=== PATIENT | male | born 1970 | race Caucasian/White ===

== ENCOUNTER 2017-03-01 16:59 | Emergency (ER) | payer MEDICAID ==
[~2017-03-01] VITALS: Ht 190.5 cm; Wt 79.4 kg
[~2017-03-01 16:59] MED LIST: ASPIR 8181 MG ORAL; ATIVAN0.5 MG ORAL; ATORVASTATIN CA20 MG ORAL; CYMBALTA30 MG ORAL; ENOXAPARIN100 MG/1 M SUBQ; FOLIC ACID1 MG ORAL; GABAPENTIN300 MG ORAL; KEPPRA500 MG ORAL; MELOXICAM15 MG PO; MULTIVITAMINS1 EA13 ORAL; NORCO 5-325 TA1 EACH ORAL; PANTOPRAZOLE SO40 MG ORAL; TASIGNA150 MG PO; THIAMINE HCL100 MG ORAL; TOPIRAMATE25 MG ORAL
[2017-03-01 17:30] VITALS: BP 118/66
[2017-03-01] MEDS ORDERED: LORazepam Inj 2mg/ml 1ml IV ONE (17:30)
[2017-03-01] MEDS ORDERED: levETIRAcetam 500 MG in D5W 110 ML IV ONE (17:30)
[2017-03-01] MEDS ORDERED: levETIRAcetam 500mg vial IV ONE (17:38)
[2017-03-01 18:18] LABS: BASOPHILS % (AUTO) 0.8 % (0.0-2.0); EOSINOPHILS % (AUTO) 4.3 % (0.0-3.0); LYMPHOCYTES % (AUTO) 27.9 % (20.0-45.0); MEAN CORPUSCULAR HEMOGLOBIN 32.9 PG (27.0-31.0); MEAN CORPUSCULAR HGB CONC 33.5 G/DL (32.0-36.0); MEAN CORPUSCULAR VOLUME 98 FL (80-99); MEAN PLATELET VOLUME 6.9 FL (6.5-10.1); MONOCYTES % (AUTO) 11.9 % (1.0-10.0); PLATELET COUNT 108 K/UL (150-450); RED BLOOD COUNT 3.96 M/UL (4.70-6.10); RED CELL DISTRIBUTION WIDTH 16.7 % (11.6-14.8); WHITE BLOOD COUNT 6.9 K/UL (4.8-10.8)
[2017-03-01 18:21] LABS: ACETAMINOPHEN < 10 ug/mL (10-30); ALANINE AMINOTRANSFERASE 39 U/L (3-41); ALBUMIN/GLOBULIN RATIO 0.9 (1.0-2.7); ALCOHOL 315 mg/dL; ANION GAP 18 (5-15); ASPARTATE AMINO TRANSFERASE 83 U/L (5-40); CALCIUM 8.8 mg/dL (8.6-10.2); CARBON DIOXIDE 25 mEQ/L (20-30); CHLORIDE 99 mEQ/L (98-107); CREATININE 0.7 mg/dL (0.7-1.2); GLOMERULAR FILTRATION RATE > 60 mL/min (>60); HEMOLYSIS 4; POTASSIUM 3.6 mEQ/L (3.4-4.9); SODIUM 142 mEQ/L (135-145)
[2017-03-01] MEDS ORDERED: Topiramate 100mg tab ORAL ONE (19:00)
[2017-03-01 19:18] VITALS: BP 117/70
[2017-03-01 20:18] VITALS: BP 109/68
--- NOTE | 2017-03-01 21:33 | Emergency Room Report ---
History of Present Illness General Chief Complaint: Seizure Source: Patient, EMS (SHILPA MARTINEZ M.D.) Present Illness HPI 46-year-old male presents ED status post seizure. Per EMS patient had a seizure on the street. Patient fell out of his wheelchair and hit his head. Upon arrival patient is awake alert oriented x3. Patient notes history of seizures. States he was recently discharged from a hospital but was unable to fill his prescriptions. Patient takes Keppra, Topamax and Ativan. patient states he hit his head. Patient denies any drug use. Denies any chest pain or shortness of breath. Denies any headaches. No other aggravating relieving factors. Denies any other associated symptoms (SHILPA MARTINEZ M.D.) Allergies: Coded Allergies: No Known Allergies (Unverified , 08/23/15) Patient History Past Medical History: CVA/TIA, seizures Pertinent Family History: none Social History: Denies: alcohol use, drug use, smoking Immunizations: UTD Reviewed Nursing Documentation: PMH: Agreed, PSxH: Agreed (SHILPA MARTINEZ M.D.) Nursing Documentation-PMH Past Medical History: No History, Except For Hx Neurological Problems: Yes Hx Cerebrovascular Accident: Yes Hx Seizures: Yes (SHILPA MARTINEZ M.D.) Review of Systems All Other Systems: negative except mentioned in HPI (SHILPA MARTINEZ M.D.) Physical Exam Vital Signs Date Time Temp Pulse Resp B/P Pulse Ox O2 Delivery O2 Flow Rate FiO2 03/01/17 16:55 97.9 100 20 123/80 98 Room Air Sp02 EP Interpretation: reviewed, normal General Appearance: no apparent distress, alert, GCS 15, non-toxic Head: normocephalic, other - abrasion to forehead Eyes: bilateral eye PERRL, bilateral eye normal inspection ENT: hearing grossly normal, normal pharynx, no angioedema, normal voice Neck: full range of motion, supple/symm/no masses Respiratory: chest non-tender, lungs clear, normal breath sounds, speaking full sentences Cardiovascular #1: regular rate, rhythm, no edema Cardiovascular #2: 2+ carotid (R), 2+ carotid (L), 2+ radial (R), 2+ radial (L) , 2+ dorsalis pedis (R), 2+ dorsalis pedis (L) Gastrointestinal: normal bowel sounds, non tender, soft, non-distended, no guarding, no rebound Rectal: deferred Genitourinary: normal inspection, no CVA tenderness Musculoskeletal: back normal, gait/station normal, normal range of motion, non- tender, calf tenderness Neurologic: alert, oriented x3, responsive, motor strength/tone normal, sensory intact, speech normal Psychiatric: judgement/insight normal, memory normal, mood/affect normal, no suicidal/homicidal ideation Reflexes: 3+ bicep (R), 3+ bicep (L), 3+ tricep (R), 3+ tricep (L), 3+ knee (R) , 3+ knee (L) Skin: normal color, no rash, warm/dry, well hydrated Lymphatic: no adenopathy (SHILPA MARTINEZ M.D.) Medical Decision Making Diagnostic Impression: Primary Impression: Seizure Additional Impression: Alcohol intoxication Qualified Codes: F10.129 - Alcohol abuse with intoxication, unspecified Labs Test 03/01/17 17:19 03/01/17 17:35 Urine Opiates Screen Negative (NEGATIVE) Urine Barbiturates Screen Negative (NEGATIVE) Phencyclidine (PCP) Screen Negative (NEGATIVE) Urine Amphetamines Screen Negative (NEGATIVE) Urine Benzodiazepines Screen Negative (NEGATIVE) Urine Cocaine Screen Negative (NEGATIVE) Urine Marijuana (THC) Screen Negative (NEGATIVE) White Blood Count 6.9 K/UL (4.8-10.8) Red Blood Count 3.96 M/UL (4.70-6.10) Hemoglobin 13.0 G/DL (14.2-18.0) Hematocrit 38.9 % (42.0-52.0) Mean Corpuscular Volume 98 FL (80-99) Mean Corpuscular Hemoglobin 32.9 PG (27.0-31.0) Mean Corpuscular Hemoglobin Concent 33.5 G/DL (32.0-36.0) Red Cell Distribution Width 16.7 % (11.6-14.8) Platelet Count 108 K/UL (150-450) Mean Platelet Volume 6.9 FL (6.5-10.1) Neutrophils (%) (Auto) 55.0 % (45.0-75.0) Lymphocytes (%) (Auto) 27.9 % (20.0-45.0) Monocytes (%) (Auto) 11.9 % (1.0-10.0) Eosinophils (%) (Auto) 4.3 % (0.0-3.0) Basophils (%) (Auto) 0.8 % (0.0-2.0) Sodium Level 142 mEQ/L (135-145) Potassium Level 3.6 mEQ/L (3.4-4.9) Chloride Level 99 mEQ/L (98-107) Carbon Dioxide Level 25 mEQ/L (20-30) Anion Gap 18 (5-15) Blood Urea Nitrogen 12 mg/dL (7-23) Creatinine 0.7 mg/dL (0.7-1.2) Estimat Glomerular Filtration Rate > 60 mL/min (>60) Glucose Level 103 mg/dL (74-106) Calcium Level 8.8 mg/dL (8.6-10.2) Total Bilirubin 0.7 mg/dL (0.0-1.2) Aspartate Amino Transf (AST/SGOT) 83 U/L (5-40) Alanine Aminotransferase (ALT/SGPT) 39 U/L (3-41) Alkaline Phosphatase 116 U/L (40-129) Total Protein 8.0 g/dL (6.6-8.7) Albumin 3.8 g/dL (3.5-5.2) Globulin 4.2 g/dL Albumin/Globulin Ratio 0.9 (1.0-2.7) Salicylates Level < 1 mg/dL (10-30) Acetaminophen Level < 10 ug/mL (10-30) Serum Alcohol 315 mg/dL (SHILPA MARTINEZ M.D.) ER Course The patient was endorsed to me by Dr. Martinez. The patient was noted to have improvement in his mental status. Patient was awake alert oriented. The patient was given oral Ativan as he had prior history of chronic alcohol abuse as well as seizures. The patient declined placement. He had a good plan for self care. Labs Test 03/01/17 17:19 03/01/17 17:35 Urine Opiates Screen Negative (NEGATIVE) Urine Barbiturates Screen Negative (NEGATIVE) Phencyclidine (PCP) Screen Negative (NEGATIVE) Urine Amphetamines Screen Negative (NEGATIVE) Urine Benzodiazepines Screen Negative (NEGATIVE) Urine Cocaine Screen Negative (NEGATIVE) Urine Marijuana (THC) Screen Negative (NEGATIVE) White Blood Count 6.9 K/UL (4.8-10.8) Red Blood Count 3.96 M/UL (4.70-6.10) Hemoglobin 13.0 G/DL (14.2-18.0) Hematocrit 38.9 % (42.0-52.0) Mean Corpuscular Volume 98 FL (80-99) Mean Corpuscular Hemoglobin 32.9 PG (27.0-31.0) Mean Corpuscular Hemoglobin Concent 33.5 G/DL (32.0-36.0) Red Cell Distribution Width 16.7 % (11.6-14.8) Platelet Count 108 K/UL (150-450) Mean Platelet Volume 6.9 FL (6.5-10.1) Neutrophils (%) (Auto) 55.0 % (45.0-75.0) Lymphocytes (%) (Auto) 27.9 % (20.0-45.0) Monocytes (%) (Auto) 11.9 % (1.0-10.0) Eosinophils (%) (Auto) 4.3 % (0.0-3.0) Basophils (%) (Auto) 0.8 % (0.0-2.0) Sodium Level 142 mEQ/L (135-145) Potassium Level 3.6 mEQ/L (3.4-4.9) Chloride Level 99 mEQ/L (98-107) Carbon Dioxide Level 25 mEQ/L (20-30) Anion Gap 18 (5-15) Blood Urea Nitrogen 12 mg/dL (7-23) Creatinine 0.7 mg/dL (0.7-1.2) Estimat Glomerular Filtration Rate > 60 mL/min (>60) Glucose Level 103 mg/dL (74-106) Calcium Level 8.8 mg/dL (8.6-10.2) Total Bilirubin 0.7 mg/dL (0.0-1.2) Aspartate Amino Transf (AST/SGOT) 83 U/L (5-40) Alanine Aminotransferase (ALT/SGPT) 39 U/L (3-41) Alkaline Phosphatase 116 U/L (40-129) Total Protein 8.0 g/dL (6.6-8.7) Albumin 3.8 g/dL (3.5-5.2) Globulin 4.2 g/dL Albumin/Globulin Ratio 0.9 (1.0-2.7) Salicylates Level < 1 mg/dL (10-30) Acetaminophen Level < 10 ug/mL (10-30) Serum Alcohol 315 mg/dL (Larry Stuart) CT/MRI/US Diagnostic Results CT/MRI/US Diagnostic Results : Imaging Test Ordered: CT head Impression no acute process (SHILPA MARTINEZ M.D.) Last Vital Signs Date Time Temp Pulse Resp B/P Pulse Ox O2 Delivery O2 Flow Rate FiO2 03/01/17 19:18 97.0 81 18 117/70 98 Room Air Status: improved (SHILPA MARTINEZ M.D.) Status: improved (Larry Stuart) Disposition: HOME, SELF-CARE Condition: Stable Scripts Lorazepam* (ATIVAN*) 0.5 Mg Tablet 0.5 MG ORAL THREE TIMES A DAY, #30 TAB Prov: Larry Stuart 03/02/17 Topiramate* (TOPAMAX*) 25 Mg Tablet 3 TAB ORAL BID, #180 TAB Prov: Larry Stuart 03/02/17 Levetiracetam (KEPPRA) 1,000 Mg Tablet 1000 MG ORAL BID, #60 TAB 0 Refills Prov: Larry Stuart 03/02/17 Referrals: [facility]ERR[facility] (PCP) SHILPA MARTINEZ M.D. March 01, 2017 21:33 Larry Sturat March 02, 2017 07:33
[2017-03-01] MEDS ORDERED: ATIVAN0.5 MG ORAL (22:02)
[2017-03-01] MEDS ORDERED: KEPPRA1000 MG ORAL (22:02)
[2017-03-01] MEDS ORDERED: TOPAMAX25 MG ORAL (22:02)
[2017-03-01 22:18] VITALS: BP 107/66
[2017-03-02 00:18] VITALS: BP 127/68
[2017-03-02 02:18] VITALS: BP 115/59
[2017-03-02 04:18] VITALS: BP 109/62
[2017-03-02] MEDS ORDERED: TOPAMAX25 MG ORAL (04:55)
[2017-03-02] MEDS ORDERED: ATIVAN0.5 MG ORAL (04:55)
[2017-03-02] MEDS ORDERED: KEPPRA1000 MG ORAL (04:55)
[2017-03-02] MEDS ORDERED: LORazepam 1mg tab ORAL ONE (05:00)
[2017-03-02 06:15] VITALS: BP 105/68
--- NOTE | 2017-03-02 10:23 | Diagnostic Imaging Report ---
Indications: Seizure Technique: Continuous helical CT imaging of the brain was performed with automatic exposure control on a Siemens sensation [address] scanner. Axial and coronal images were reconstructed at 5 mm slice thickness and interval. CTDI volume(s): 70 mGy Total DLP: 1604 mGy-cm Findings: Comparison: 03/29/16 Diffuse atrophy, left frontal chronic encephalomalacia unchanged. No evidence of mass or hemorrhage, other attenuation abnormality, mass effect, midline shift, hydrocephalus or increased intracranial pressure. Bone window images are unremarkable. Right mastoid air cells currently partially opacified. Visualized paranasal sinuses and left mastoid air cells are clear. IMPRESSION: No evidence of acute intracranial pathology, unchanged Stable chronic intracranial changes as described Suggestion of development of mild right mastoiditis. This correlates with Dr. Guerra's preliminary report. The CT scanner at [facility] is accredited by the [employer] and the scans are performed using protocols designed to limit radiation exposure to as low as reasonably achievable to attain images of sufficient resolution adequate for diagnostic evaluation.
== END 2017-03-02 06:15 | disposition home or self-care (01) ==
LOC: EDBD 16:59 → EMR 17:30
DX: G40.909 Epilepsy, unspecified, not intractable, without status epilepticus (principal); F10.129 Alcohol abuse with intoxication, unspecified; Y90.8 Blood alcohol level of 240 mg/100 ml or more; Z86.73 Personal history of transient ischemic attack (TIA), and cerebral infarction without residual deficits
CPT/HCPCS: 36415; 70450; 80053; 80300; 80329; 82962; 85025; 96360; 96361; 96374; 96375; 99284; J1953

== ENCOUNTER 2017-03-02 12:29 | Emergency (ER) | payer MEDICAID ==
[~2017-03-02] VITALS: Ht 182.9 cm; Wt 81.6 kg
[~2017-03-02 12:29] MED LIST changes: +KEPPRA1000 MG ORAL; +TOPAMAX25 MG ORAL
--- NOTE | 2017-03-02 13:33 | Emergency Room Report ---
History of Present Illness General Chief Complaint: Laceration Source: EMS Present Illness HPI 46 YO Male . presents to the ED intoxicated with alcohol, pt. is NAD, pt. is alert, has obvious sign of trauma with contusion and abrasion to the left side of the forehead, pt. states he fell out of this wheelchair. pt. is poorly cooperative and refuses evaluation initially. HPI and ROS are limited due to pt. cooperation. Allergies: Coded Allergies: No Known Allergies (Unverified , 08/23/15) Patient History Past Medical History: see triage record Past Surgical History: none Pertinent Family History: none Immunizations: UTD Reviewed Nursing Documentation: PMH: Agreed, PSxH: Agreed Nursing Documentation-PMH Past Medical History: No History, Except For Hx Neurological Problems: Yes Hx Cerebrovascular Accident: Yes Hx Seizures: Yes Review of Systems All Other Systems: limited - poor pt. cooperation, and refusal of care/ evaluation Physical Exam Sp02 EP Interpretation: reviewed, normal General Appearance: no apparent distress, alert, GCS 15, non-toxic, thin, other - disheveled Head: normocephalic, other - contusion to the left side of the forehead, abrasion/ superficial lac approximately 0.3cm in length noted. Eyes: bilateral eye PERRL, bilateral eye normal inspection ENT: hearing grossly normal, normal pharynx, no angioedema, normal voice Neck: full range of motion, supple/symm/no masses Respiratory: lungs clear, normal breath sounds, speaking full sentences - pt. is verbally agressive and uses profanity regularly Cardiovascular #1: regular rate, rhythm, no edema Musculoskeletal: back normal, normal range of motion, non-tender, other - wheelchair Neurologic: alert, oriented x3, responsive, motor strength/tone normal, sensory intact, speech normal Psychiatric: judgement/insight normal, memory normal, mood/affect normal Skin: normal color, no rash, warm/dry, well hydrated Procedures Laceration/Wound Repair Laceration/Wound Repair : Consent: Verbal Wound Location: face - left forehead/eyebrow Wound's Depth, Shape: superficial Wound Length (cm): 0 Wound Explored: clean Irrigated w/ Saline (ccs): 60 Betadine Prep?: Yes Wound Repaired With: Dermabond Layer Closure?: No Sterile Dressing Applied?: Yes Splint Applied?: No Sling Applied?: No Patient Tolerated: Well Complications: None Medical Decision Making PA Attestation Dr. Gardner is my supervising Physician whom patient management has been discussed with. Diagnostic Impression: Primary Impression: Contusion Qualified Codes: S00.03XA - Contusion of scalp, initial encounter Additional Impression: Alcohol intoxication Qualified Codes: F10.120 - Alcohol abuse with intoxication, uncomplicated ER Course Pt. presents to the ED intoxicated with alcohol, pt. is NAD, pt. is alert, has obvious sign of trauma with contusion and abrasion to the left side of the forehead, pt. states he fell out of this wheelchair. pt. is poorly cooperative and refuses evaluation initially. Ddx considered but are not limited to ETOH, Trauma, Syncope, dementia, OD Vital signs: are WNL, pt. is afebrile H&PE are most consistent with ETOH intoxication, and contusion will do imaging to r/o bleed. ORDERS: - CT head no contrast: soft tissue contusion, otherwise no acute injury, chronic osteomalacia noted per official radiology report. ED INTERVENTIONS: --Tetanus vaccination is administered. - wound care/cleaning -derma gary is applied to superficial forehead lac/abrasion. -Observance while he detoxifies. Pt. was allowed to sleep/rest until clinically sober. DISCHARGE: At this time pt. is stable for d/c to home. Will provide printed patient care instructions, and any necessary prescriptions. Care plan and follow up instructions have been discussed with the patient prior to discharge. Disposition: HOME, SELF-CARE Condition: Stable Referrals: [facility]ERR[facility] (PCP) Patient Instructions: Nonsutured Laceration Care Additional Instructions: Take medications as directed. Follow up with PCP in 3-5 days Return sooner to ED if new symptoms occur, or current symptoms become worse. Recommend discontinue use of alcohol - Please note that this Emergency Department Report was dictated using [email or web address] technology software, occasionally this can lead to erroneous entry secondary to interpretation by the dictation equipment. Reyna Leal March 02, 2017 13:32
[2017-03-02] MEDS ORDERED: TdaP Vaccine 0.5ml Syr IM ONE (13:45)
[2017-03-02] MEDS ORDERED: Bacitracin Oint UD TOPIC ONE (13:45)
--- NOTE | 2017-03-02 14:40 | Diagnostic Imaging Report ---
Indications: Fall, head trauma with laceration, pain Technique: Continuous helical CT imaging of the brain was performed with automatic exposure control on a Siemens sensation [address] scanner. Axial and coronal images were reconstructed at 5 mm slice thickness and interval. CTDI volume(s): 70 mGy Total DLP: 1569 mGy-cm Findings: Comparison: 03/29/16 Chronic encephalomalacia high left frontal lobe, mild diffuse atrophy unchanged.. No evidence of mass or hemorrhage, other attenuation abnormality, mass effect, midline shift, hydrocephalus or increased intracranial pressure. Bone window images are unremarkable. Visualized paranasal sinuses and mastoid air cells are clear. Anterior left frontal scalp currently mildly swollen and increased attenuation with irregular skin thickening. No associated gas or foreign body. IMPRESSION: Left frontal scalp contusion No other evidence of acute injury or other acute intracranial pathology. Stable chronic changes as described The CT scanner at [facility] is accredited by the [employer] and the scans are performed using protocols designed to limit radiation exposure to as low as reasonably achievable to attain images of sufficient resolution adequate for diagnostic evaluation.
[2017-03-02 17:37] VITALS: BP 128/68
== END 2017-03-02 17:42 | disposition home or self-care (01) ==
LOC: EDBD 12:29 → EMR 12:31
DX: S01.112A Laceration without foreign body of left eyelid and periocular area, initial encounter (principal); S00.03XA Contusion of scalp, initial encounter; F10.129 Alcohol abuse with intoxication, unspecified; W05.0XXA Fall from non-moving wheelchair, initial encounter; Y92.480 Sidewalk as the place of occurrence of the external cause; Y99.8 Other external cause status; Z23 Encounter for immunization
CPT/HCPCS: 12011; 70450; 90471; 90715; 96372; 99284; Z7502

== ENCOUNTER 2017-03-03 15:06 | Emergency (ER) | payer MEDICAID ==
[~2017-03-03] VITALS: Ht 182.9 cm; Wt 81.6 kg
[2017-03-03 17:10] VITALS: BP 128/82
[2017-03-03 20:20] VITALS: BP 128/82
--- NOTE | 2017-03-03 21:01 | Emergency Room Report ---
History of Present Illness General Chief Complaint: Alcohol Intoxication Source: Patient Present Illness HPI The patient is a 46-year-old male brought in by ambulance for possible alcohol intoxication. The patient was seen in this emergency department for the same complaint yesterday. He is unable to provide any information at this time. Allergies: Coded Allergies: No Known Allergies (Unverified , 08/23/15) Patient History Past Medical History: see triage record Pertinent Family History: none Social History: Reports: alcohol use, drug use Reviewed Nursing Documentation: PMH: Agreed, PSxH: Agreed Nursing Documentation-PMH Past Medical History: No History, Except For History Of Psychiatric Problem: Yes - alcohol abuse Hx Neurological Problems: Yes Hx Cerebrovascular Accident: Yes Hx Seizures: Yes Review of Systems All Other Systems: negative except mentioned in HPI Physical Exam Vital Signs Date Time Temp Pulse Resp B/P Pulse Ox O2 Delivery O2 Flow Rate FiO2 03/03/17 15:06 98.1 90 16 128/82 100 Room Air Sp02 EP Interpretation: reviewed, normal General Appearance: alert, GCS 15, non-toxic, lethargic Head: normocephalic Eyes: bilateral eye PERRL, bilateral eye normal inspection ENT: hearing grossly normal, normal pharynx, no angioedema, normal voice Neck: full range of motion, supple/symm/no masses Respiratory: chest non-tender, lungs clear, normal breath sounds, speaking full sentences Cardiovascular #1: regular rate, rhythm, no edema Gastrointestinal: normal bowel sounds, non tender, soft, non-distended, no guarding, no rebound Musculoskeletal: other - R sided paralysis Neurologic: sensory intact, motor weakness - R sided Psychiatric: no suicidal/homicidal ideation Skin: normal color, no rash, warm/dry, well hydrated Lymphatic: no adenopathy Medical Decision Making PA Attestation Dr. Viramontes is my supervising physician. Patient management was discussed with my supervising physician Diagnostic Impression: Primary Impression: ETOH abuse ER Course The patient is a 46-year-old male brought in by ambulance for possible alcohol intoxication. DDx considered but not limited to: acute alcohol intoxication, hepatic encephalopathy, drug overdose, hypoglycemia, psychosis Physical exam: Vitals are within normal limits. No apparent distress. Patient is lethargic. Head is normocephalic atraumatic. Pupils are equally round and reactive to light The patient is arousable by touch or name. Lungs are clear to auscultation bilaterally. Abdomen is soft, non tender. R sided paralysis. Otherwise exam is unremarkable Blood alcohol at 399. The patient is given time to rest in the emergency department. The patient is able to ambulate well and is asking to leave at this time. The patient is alert and oriented. R sided paralysis is chronic. Pt travels with wheelchair. The patient be discharged home and given ER precautions. Patient was given advice on alcohol addiction Laboratory Tests Test 03/03/17 16:10 Urine Opiates Screen Negative (NEGATIVE) Urine Barbiturates Screen Negative (NEGATIVE) Phencyclidine (PCP) Screen Negative (NEGATIVE) Urine Amphetamines Screen Negative (NEGATIVE) Urine Benzodiazepines Screen Negative (NEGATIVE) Urine Cocaine Screen Negative (NEGATIVE) Urine Marijuana (THC) Screen Negative (NEGATIVE) Serum Alcohol 399 mg/dL Lab Results Impression Alcohol significantly elevated. Last Vital Signs Date Time Temp Pulse Resp B/P Pulse Ox O2 Delivery O2 Flow Rate FiO2 03/03/17 20:20 98.1 90 16 128/82 100 Room Air Status: improved Disposition: HOME, SELF-CARE Condition: Improved Referrals: [facility]ERR[facility] (PCP) Patient Instructions: Alcohol Intoxication, Alcohol Abuse and Nutrition Additional Instructions: My findings were discussed with the patient. Patient was counseled to seek help for alcohol abuse. Patient is stable for discharge, is alert and oriented, and can ambulate without difficulty. Patient is asked to return to ED if he experiences chest pain, abdominal pain, dizziness, falls down, or for any reason. WILMAR RODRIGUEZ March 03, 2017 21:01
== END 2017-03-03 20:38 | disposition home or self-care (01) ==
LOC: EDBD 15:06 → EMR 15:21
DX: F10.10 Alcohol abuse, uncomplicated (principal); Y90.8 Blood alcohol level of 240 mg/100 ml or more; Z86.73 Personal history of transient ischemic attack (TIA), and cerebral infarction without residual deficits
CPT/HCPCS: 36415; 80300; 80329; 96374

== ENCOUNTER 2017-07-04 17:49 | Emergency (ER) | payer MEDICAID ==
[~2017-07-04] VITALS: Ht 180.3 cm; Wt 81.6 kg
[2017-07-04 17:49] VITALS: BP 130/86
[2017-07-04] MEDS ORDERED: LOVENOX10 M3 SUBQ (17:52)
[2017-07-04] MEDS ORDERED: NEURONTIN100 MG ORAL (17:52)
[2017-07-04] MEDS ORDERED: TASIGNA150 MG PO (17:52)
[2017-07-04] MEDS ORDERED: FOLIC ACID1 MG ORAL (17:52)
[2017-07-04] MEDS ORDERED: NORCO 10-325 T1 EACH ORAL (17:52)
[2017-07-04] MEDS ORDERED: KEPPRA500 M4 ORAL (17:52)
[2017-07-04] MEDS ORDERED: ATIVAN0.5 MG ORAL (17:52)
[2017-07-04 19:02] LABS: MEAN CORPUSCULAR HEMOGLOBIN 33.7 PG (27.0-31.0); MEAN CORPUSCULAR HGB CONC 33.6 G/DL (32.0-36.0); MEAN CORPUSCULAR VOLUME 100 FL (80-99); MEAN PLATELET VOLUME 5.6 FL (6.5-10.1); PLATELET COUNT 88 K/UL (150-450); RED BLOOD COUNT 3.63 M/UL (4.70-6.10); RED CELL DISTRIBUTION WIDTH 15.4 % (11.6-14.8); WHITE BLOOD COUNT 6.4 K/UL (4.8-10.8)
[2017-07-04 19:15] VITALS: BP 119/69
[2017-07-04 19:25] LABS: ALANINE AMINOTRANSFERASE 93 U/L (3-41); ALBUMIN/GLOBULIN RATIO 0.9 (1.0-2.7); ALCOHOL 369 mg/dL; ANION GAP 16 (5-15); ASPARTATE AMINO TRANSFERASE 144 U/L (5-40); CALCIUM 8.8 mg/dL (8.6-10.2); CARBON DIOXIDE 28 mEQ/L (20-30); CHLORIDE 87 mEQ/L (98-107); CREATININE 0.7 mg/dL (0.7-1.2); GLOMERULAR FILTRATION RATE > 60 mL/min (>60); HEMOLYSIS 27; POTASSIUM 3.7 mEQ/L (3.4-4.9); SODIUM 131 mEQ/L (135-145); TOTAL PROTEIN 7.8 g/dL (6.6-8.7)
[2017-07-04 19:31] LABS: APPEARANCE,URINE CLEAR; KETONES,URINE NEGATIVE (NEGATIVE); LEUKOCYTE ESTERASE ,URINE NEGATIVE (NEGATIVE); NITRITE,URINE NEGATIVE (NEGATIVE); PH,URINE 6.5 (4.5-8.0); PROTEIN,URINE NEGATIVE (NEGATIVE); UROBILINOGEN,URINE NORMAL MG/DL (0.0-1.0)
[2017-07-04 19:39] LABS: BACTERIA,URINE FEW /HPF; WBC,URINE 0-2 /HPF (0 - 0)
[2017-07-04 20:28] LABS: ANISOCYTOSIS 1+; BAND NEUTROPHILS % (MANUAL) 1 % (0-8); EOSINOPHILS % (MANUAL) 4 % (0-3); HYPOCHROMASIA 1+; LYMPHOCYTES % (MANUAL) 31 % (20-45); MACROCYTES 1+; NEUTROPHILS % (MANUAL) 52 % (45-75); PLATELET MORPHOLOGY NORMAL; TOTAL CELLS COUNTED 100
[2017-07-04 20:29] LABS: BASOPHILS % (MANUAL) 0 % (0-2); PLATELET ESTIMATE DECREASED
[2017-07-04 21:16] VITALS: BP 109/64
--- NOTE | 2017-07-04 22:16 | Emergency Room Report ---
History of Present Illness General Chief Complaint: Seizure Source: Patient, EMS Present Illness HPI Patient is brought in by EMS from the street. He has a history of seizure disorder. He states that he has been out of his seizure medications for the past 2 days. He states that he normally takes Keppra and Ativan. He is primarily requesting Ativan. He is worried that he will have a withdrawal from Ativan. He states that he had a seizure according to EMS. However, there was no witness of seizure activity by bystanders. He was outside of a grocery store. There are no other complaints. Allergies: Coded Allergies: WARFARIN (Unverified Allergy, Unknown, 07/04/17) Patient History Past Medical History: see triage record, CVA/TIA, seizures Social History: Reports: alcohol use, drug use Reviewed Nursing Documentation: PMH: Agreed, PSxH: Agreed Nursing Documentation-PMH Past Medical History: No History, Except For Hx COPD: No - DVT Hx Diabetes: No - LEUKIMIA Hx Neurological Problems: Yes Hx Cerebrovascular Accident: Yes Hx Seizures: Yes Review of Systems All Other Systems: negative except mentioned in HPI Physical Exam Vital Signs Date Time Temp Pulse Resp B/P (MAP) Pulse Ox O2 Delivery O2 Flow Rate FiO2 07/04/17 17:46 97.9 90 18 130/86 98 Room Air Sp02 EP Interpretation: reviewed, normal General Appearance: no apparent distress, alert, GCS 15, non-toxic, other - [place], poor hygiene Head: normocephalic, atraumatic Eyes: bilateral eye normal inspection, bilateral eye PERRL ENT: hearing grossly normal, normal pharynx, no angioedema, normal voice Neck: full range of motion, supple/symm/no masses Respiratory: chest non-tender, lungs clear, normal breath sounds, speaking full sentences Cardiovascular #1: regular rate, rhythm, no edema Gastrointestinal: normal bowel sounds, non tender, soft, non-distended, no guarding, no rebound Rectal: deferred Musculoskeletal: back normal, gait/station normal, normal range of motion, non- tender Neurologic: alert, oriented x3, responsive, motor strength/tone normal, sensory intact, speech normal Psychiatric: judgement/insight normal, memory normal, mood/affect normal, no suicidal/homicidal ideation Skin: warm/dry, well hydrated, other - Excoriations c/w scratching Medical Decision Making Diagnostic Impression: Primary Impression: Seizure disorder Additional Impression: ETOH abuse ER Course I suspect the seizures that the patient is presenting with is non-emergent in etiology. The patient has a history of seizures in the past and has returned to baseline with normal neurologic status. There was no witness of the actual seizure. The patient had no seizure activity here in the emergency department. The patient was stable. I suspect this patient was seeking benzodiazepines. I will give the patient a prescription for Keppra. He was also given Her here in the emergency department. I will not refill his knee Ativan as it is a controlled substance. The patient is not immunocompromised with no history of known structural brain disease. The patient does not have persistent altered mental status, fever or new focal neurologic deficit. Laboratory workup was noncontributory. I doubt meningitis so a lumbar puncture was not performed. The patient was counseled that, though unlikely, the possibility of an emergent cause of seizure may still be present and that the patient should return immediately if symptoms persist or worsen. I believe the patient is stable for discharge to followup with the primary care provider for further workup. Laboratory Tests Test 07/04/17 18:35 White Blood Count 6.4 K/UL (4.8-10.8) Red Blood Count 3.63 M/UL (4.70-6.10) L Hemoglobin 12.2 G/DL (14.2-18.0) L Hematocrit 36.4 % (42.0-52.0) L Mean Corpuscular Volume 100 FL (80-99) H Mean Corpuscular Hemoglobin 33.7 PG (27.0-31.0) H Mean Corpuscular Hemoglobin Concent 33.6 G/DL (32.0-36.0) Red Cell Distribution Width 15.4 % (11.6-14.8) H Platelet Count 88 K/UL (150-450) L Mean Platelet Volume 5.6 FL (6.5-10.1) L Neutrophils (%) (Auto) % (45.0-75.0) Lymphocytes (%) (Auto) % (20.0-45.0) Monocytes (%) (Auto) % (1.0-10.0) Eosinophils (%) (Auto) % (0.0-3.0) Basophils (%) (Auto) % (0.0-2.0) Differential Total Cells Counted 100 Neutrophils % (Manual) 52 % (45-75) Lymphocytes % (Manual) 31 % (20-45) Monocytes % (Manual) 12 % (1-10) H Eosinophils % (Manual) 4 % (0-3) H Basophils % (Manual) 0 % (0-2) Band Neutrophils 1 % (0-8) Platelet Estimate Decreased L Platelet Morphology Normal Hypochromasia 1+ Anisocytosis 1+ Macrocytosis 1+ Urine Color Pale yellow Urine Appearance Clear Urine pH 6.5 (4.5-8.0) Urine Specific [place] 1.005 (1.005-1.035) Urine Protein Negative (NEGATIVE) Urine Glucose (UA) Negative (NEGATIVE) Urine Ketones Negative (NEGATIVE) Urine Occult Blood 2+ (NEGATIVE) H Urine Nitrite Negative (NEGATIVE) Urine Bilirubin Negative (NEGATIVE) Urine Urobilinogen Normal MG/DL (0.0-1.0) Urine Leukocyte Esterase Negative (NEGATIVE) Urine RBC 2-4 /HPF (0 - 0) H Urine WBC 0-2 /HPF (0 - 0) Urine Squamous Epithelial Cells None /LPF (NONE/OCC) Urine Bacteria Few /HPF (NONE) Sodium Level 131 mEQ/L (135-145) L Potassium Level 3.7 mEQ/L (3.4-4.9) Chloride Level 87 mEQ/L (98-107) L Carbon Dioxide Level 28 mEQ/L (20-30) Anion Gap 16 (5-15) H Blood Urea Nitrogen 6 mg/dL (7-23) L Creatinine 0.7 mg/dL (0.7-1.2) Estimate Glomerular Filtration Rate > 60 mL/min (>60) Glucose Level 128 mg/dL (74-106) H Calcium Level 8.8 mg/dL (8.6-10.2) Total Bilirubin 1.0 mg/dL (0.0-1.2) Aspartate Amino Transferase (AST) 144 U/L (5-40) H Alanine Aminotransferase (ALT) 93 U/L (3-41) H Alkaline Phosphatase 92 U/L (40-129) Total Protein 7.8 g/dL (6.6-8.7) Albumin 3.7 g/dL (3.5-5.2) Globulin 4.1 g/dL Albumin/Globulin Ratio 0.9 (1.0-2.7) L Urine Opiates Screen Negative (NEGATIVE) Urine Barbiturates Screen Negative (NEGATIVE) Phencyclidine (PCP) Screen Negative (NEGATIVE) Urine Amphetamines Screen Negative (NEGATIVE) Urine Benzodiazepines Screen Negative (NEGATIVE) Urine Cocaine Screen Negative (NEGATIVE) Urine Marijuana (THC) Screen Positive (NEGATIVE) H Serum Alcohol 369 mg/dL EKG Diagnostic Results Rate: normal Rhythm: NSR ST Segments: no acute changes Other Impression Early repolarization Rhythm Strip Diag. Results EP Interpretation: yes Rate: 80's Rhythm: NSR, no PVC's, no ectopy Last Vital Signs Date Time Temp Pulse Resp B/P (MAP) Pulse Ox O2 Delivery O2 Flow Rate FiO2 07/04/17 17:50 96 18 Room Air 07/04/17 17:49 97.9 130/86 98 Status: improved Disposition: HOME, SELF-CARE Condition: Improved Referrals: [facility],REFERRING (PCP) Patient Instructions: Seizure, Adult JUAN MANUEL BACON D.O. Jul 04, 2017 22:16
[2017-07-04] MEDS ORDERED: KEPPRA1000 MG ORAL (22:27)
[2017-07-04 23:10] VITALS: BP 112/78
[2017-07-04 23:20] VITALS: BP 112/78
--- NOTE | 2017-07-05 16:04 | Cardiology Report ---
APPROVED REPORT EKG Measurement Heart [id number] Normal sinus rhythm ST elevation, probably due to early repolarization Borderline ECG
== END 2017-07-04 23:20 | disposition home or self-care (01) ==
LOC: EDBD 17:49 → EMR 18:20
DX: G40.909 Epilepsy, unspecified, not intractable, without status epilepticus (principal); F10.10 Alcohol abuse, uncomplicated; Z86.73 Personal history of transient ischemic attack (TIA), and cerebral infarction without residual deficits; Z79.01 Long term (current) use of anticoagulants; Z86.718 Personal history of other venous thrombosis and embolism; Z85.6 Personal history of leukemia
CPT/HCPCS: 36415; 80053; 80299; 80300; 80329; 81003; 82962; 85007; 85025; 93005; 96360; 99284